=== PATIENT | female | born 1940 ===

== ENCOUNTER 2018-02-19 18:54 | Emergency (ER) | payer MEDICARE, OTHER ==
[2018-02-19] MEDS ORDERED: diphenhydrAMINE 50 MG/ML SDV IVPUSH ONE (19:06)
[2018-02-19] MEDS ORDERED: methylPREDNISolone Sodium Succinate 125 MG/2 ML SDV IVPUSH ONE (19:06)
--- NOTE | 2018-02-19 19:56 | EDM.PDOC ---
ED HPI GENERAL MEDICAL PROBLEM - General Chief Complaint: Allergic Reaction Stated Complaint: ALERGIC REACTION [id number] Time Seen by Provider: 02/19/18 19:00 Source of Information: Reports: Patient History Limitations: Reports: No Limitations - History of Present Illness INITIAL COMMENTS - FREE TEXT/NARRATIVE: Washing radishes and hands started to swell, left greater than right. No previous reaction, States seemed different as soon as put in to water, water turned red. Finger swelling around wedding band. Usually able to remove nightly. now unable to even turn ring. No numbness or tingling in hand or fingers. Onset: Today - Related Data Allergies Allergy/AdvReac Type Severity Reaction Status Date / Time No Known Allergies Allergy Verified 02/19/18 19:01 Home Meds: Home Meds . [No Known Home Meds] 02/19/18 [History] Past Medical History HEENT History: Reports: Impaired Vision [employer] WORK[employer] History: Reports: - Past Surgical History Female Surgical History: Reports: Hysterectomy Social & Family History - Tobacco Use Smoking Status *Q: Never Smoker - Caffeine Use Caffeine Use: Reports: Coffee - Recreational Drug Use Recreational Drug Use: No ED ROS ALLERGIC REACTION - Review of Systems Review Of Systems: ROS reveals no pertinent complaints other than HPI. Constitutional: Reports: No Symptoms HEENT: Reports: No Symptoms Respiratory: Reports: No Symptoms Cardiovascular: Reports: No Symptoms GI/Abdominal: Reports: No Symptoms : Reports: No Symptoms Skin: Reports: Erythema (LEFT hand swollen, mild erythema to dorsal hand. Fingers swollen. RIng tight, non mobile No change in sensation distal ring finger slightly cooler thatn others. ) ED EXAM GENERAL NO PERIP PULSE - Physical Exam Exam: See Below Exam Limited By: No Limitations General Appearance: Alert, Mild Distress Eye Exam: Bilateral Eye: EOMI Throat/Mouth: Normal Lips, Normal Voice Neck: Normal Inspection Respiratory/Chest: No Respiratory Distress, Lungs Clear Cardiovascular: Normal Peripheral Pulses, Regular Rate, Rhythm Extremities: Other (left hand and fingers swollen, wedding band taught on finger. slight coolness at palmar tip). No: Normal Inspection Skin Exam: Intact ED Add Procedures - Additional/Other Procedure(s) Procedure(s) (Free Text): Wide wedding band Tight, removed with ring cutter. Tolerated well No complications. Good cap refill. Full ROM. No Numbness pain or tingling. Ring given to patient. Course - Vital Signs Last Recorded V/S: Last Vital Signs Temp 96.9 F 02/19/18 18:59 Pulse 67 02/19/18 20:21 Resp 16 02/19/18 20:21 BP 102/81 02/19/18 20:21 Pulse Ox 99 02/19/18 20:21 - Orders/Labs/Meds Meds: Medications Discontinued Medications Generic Name Dose Route Start Last Admin Trade Name Jeff PRN Reason Stop Dose Admin Diphenhydramine HCl 25 mg 02/19/18 19:06 02/19/18 19:14 Benadryl IVPUSH 02/19/18 19:07 25 mg ONETIME ONE Administration Methylprednisolone Sodium Succinate 125 mg 02/19/18 19:06 02/19/18 19:16 Solu-Medrol IVPUSH 02/19/18 19:07 125 mg ONETIME ONE Administration - Re-Assessments/Exams Free Text/Narrative Re-Assessment/Exam: 02/19/18 20:09 Cool water bath attempted. No change in swelling. Ring removed with cutter Swelling improving. Full ROM. No tingling or change in sensation. Good color to hand and fingers. 02/20/18 04:43 Departure - Departure Time of Disposition: 20:04 Disposition: Home, Self-Care 01 Condition: Good Clinical Impression: Swelling of left hand Contact dermatitis Qualifiers: Contact dermatitis type: unspecified Contact dermatitis trigger: other trigger Qualified Code(s): L25.8 - Unspecified contact dermatitis due to other agents - Discharge Information Instructions: Allergies, Adult, [id number] Forms: ED Department Discharge Additional Instructions: elevate extremity, move fingers urgent follow up if pain, numbness tingling or discoloration of hand limit salt and sodium intake x 24 hours benadryl 25mg every 4 hours x 24 hours
== END 2018-02-19 20:26 | disposition home or self-care (01) ==
LOC: DL.ED 18:54
DX: L25.8 Unspecified contact dermatitis due to other agents (principal)
CPT/HCPCS: 96374; 96375; 99282; 99283; J1200; J2930

== ENCOUNTER 2020-01-25 20:25 | Emergency (ER) | payer MEDICARE, OTHER ==
--- NOTE | 2020-01-25 20:52 | EDM.PDOC ---
ED HPI GENERAL MEDICAL PROBLEM - General Chief Complaint: Upper Extremity Injury/Pain Stated Complaint: AMBULANCE Time Seen by Provider: 01/25/20 20:47 Source of Information: Reports: Patient, EMS History Limitations: Reports: No Limitations - History of Present Illness INITIAL COMMENTS - FREE TEXT/NARRATIVE: pt states she is fine and wants to go home. 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 ED EXAM, GENERAL - Physical Exam Exam: See Below Exam Limited By: Uncooperative General Appearance: Alert, WD/WN, No Apparent Distress, Other (unco-op stating there is nothing wrong with her.) Eye Exam: Bilateral Eye: PERRL (pupils ess ER @ 4mm) Ears: Hearing Grossly Normal Throat/Mouth: Normal Voice, No Airway Compromise Head: Atraumatic Neck: Non-Tender, Full Range of Motion Respiratory/Chest: No Respiratory Distress Cardiovascular: Regular Rate, Rhythm GI/Abdominal: Soft, Non-Tender Extremities: Other (left elbow spfl abrasions, no suturable wounds, normal ROM no problem, NV wnl) Neurological: Alert, Oriented, Normal Gait, No Motor/Sensory Deficits Psychiatric: Other (cranky) Skin Exam: Warm, Dry, Normal Color Lymphatic: No Adenopathy Course - Vital Signs Last Recorded V/S: Last Vital Signs Temp 35.8 C L 01/25/20 20:30 Pulse 69 01/25/20 20:30 Resp 19 01/25/20 20:30 BP 135/83 01/25/20 20:30 Pulse Ox 100 01/25/20 20:30 Departure - Departure Time of Disposition: 20:52 Disposition: Home, Self-Care 01 Condition: Good Clinical Impression: Elbow abrasion Qualifiers: Encounter type: initial encounter Laterality: left Qualified Code(s): S50.312A - Abrasion of left elbow, initial encounter - Discharge Information Instructions: Abrasion, [id number] Additional Instructions: 1) keep wound clean dry covered until Tuesday 2) see clinic Tuesday for wound check Sepsis Event Note - Evaluation Sepsis Screening Result: No Definite Risk - Focused Exam Vital Signs: Vital Signs Temp Pulse Resp BP Pulse Ox 01/25/20 20:30 35.8 C L 69 19 135/83 100 Date Exam was Performed: 01/25/20 Time Exam was Performed: 20:47
== END 2020-01-25 20:56 | disposition home or self-care (01) ==
LOC: DL.ED 20:25
DX: S50.312A Abrasion of left elbow, initial encounter (principal); W01.10XA Fall on same level from slipping, tripping and stumbling with subsequent striking against unspecified object, initial encounter
CPT/HCPCS: 99282; 99284

== ENCOUNTER 2022-02-19 06:33 | Emergency (ER) | payer MEDICARE, OTHER | END 2022-02-19 08:55 | disposition home or self-care (01) | LOC: DL.ED 06:33 | DX: S72.002A Fracture of unspecified part of neck of left femur, initial encounter for closed fracture (principal); U07.1 COVID-19; Z79.82 Long term (current) use of aspirin; Z79.899 Other long term (current) drug therapy; W18.30XA Fall on same level, unspecified, initial encounter | CPT/HCPCS: 73502; 99284; U0002 ==

== ENCOUNTER 2022-03-15 10:34 | Inpatient (IN) | payer MEDICARE, OTHER ==
[2022-03-15 12:04] LABS: CORONAVIRUS COVID-19 NAA NEGATIVE (NEGATIVE)
[2022-03-15 12:14] LABS: ANION GAP 12.6 mEq/L (7-13)
[2022-03-15] MEDS ORDERED: Potassium Chloride Riders 10 MEQ in Premix Bag 1 BAG IV ONE (12:39)
[2022-03-15] MEDS ORDERED: Iopamidol 755 Mg/ML 100 ML Bottle IVPUSH ONE (12:40)
[2022-03-15] MEDS ORDERED: Polyethylene Glycol 3350 Powder 17 GM Packet PO PRN (15:01)
[2022-03-15] MEDS ORDERED: Bisacodyl 5 MG Tab PO PRN (15:01)
[2022-03-15] MEDS ORDERED: Acetaminophen 325 MG Tab PO PRN (15:01)
[2022-03-15] MEDS ORDERED: Albuterol/Ipratropium 3.0-0.5 MG/3 ML Neb Soln NEB PRN (15:01)
[2022-03-15] MEDS ORDERED: Ondansetron 4 MG/2 ML SDV IVPUSH PRN (15:01)
[2022-03-15] MEDS ORDERED: Docusate Sodium 100 MG Cap PO PRN (15:01)
[2022-03-15] MEDS ORDERED: Acetaminophen/oxyCODONE 325-5 MG Tab PO PRN (15:01)
[2022-03-15] MEDS ORDERED: HYDROmorphone 0.5 MG/0.5 ML Syringe IVPUSH PRN (15:01)
[2022-03-15] MEDS ORDERED: Furosemide 20 MG/2 ML VIAL IVPUSH ONE (15:07)
[2022-03-15] MEDS ORDERED: Potassium Chloride 10 MEQ Tab.ER PO ONE (17:30)
[2022-03-15] MEDS ORDERED: Furosemide 100 MG in Sodium Chloride 0.9% 90 ML IV SCH (20:00)
[2022-03-15] MEDS ORDERED: hydrALAZINE 20 MG/ML SDV IVPUSH PRN (21:12)
[2022-03-15] MEDS: Sodium Chloride 0.9% 10 ML Syringe FLUSH PRN (23:50)
[2022-03-16] MEDS ORDERED: Magnesium Sulfate/Water 2 GM in Premix Bag 1 BAG IV ONE (10:30)
[2022-03-16] MEDS ORDERED: amLODIPine 5 MG Tab PO ONE (10:38)
[2022-03-16] MEDS: Carbamide Peroxide 6.5% Otic Soln 15 ML Bottle EARBOTH SCH ×2 (11:38→21:10)
[2022-03-16] MEDS ORDERED: Potassium Chloride 10 MEQ Tab.ER PO ONE ×2 (12:00→18:00)
[2022-03-16] MEDS ORDERED: Furosemide 100 MG in Sodium Chloride 0.9% 90 ML IV SCH (17:15)
[2022-03-16] MEDS: Sodium Chloride 0.9% 10 ML Syringe FLUSH PRN (21:14)
[2022-03-17 07:29] LABS: ANION GAP 11.9 mEq/L (7-13)
[2022-03-17] MEDS ORDERED: Potassium Chloride 10 MEQ Tab.ER PO SCH (08:00)
[2022-03-17] MEDS: Aspirin 81 MG Tab.EC PO SCH (08:33)
[2022-03-17] MEDS: amLODIPine 5 MG Tab PO SCH (08:33)
[2022-03-17] MEDS: Carbamide Peroxide 6.5% Otic Soln 15 ML Bottle EARBOTH SCH ×2 (08:34→20:20)
[2022-03-17] MEDS ORDERED: Lisinopril 20 MG Tab PO SCH (09:00)
[2022-03-17] MEDS ORDERED: Carvedilol 6.25 MG Tab PO ONE (10:48)
[2022-03-17] MEDS ORDERED: Sodium Chloride 0.9% 250 ML IV SCH ×2 (11:00→20:00)
[2022-03-17] MEDS ORDERED: Allopurinol 300 MG Tab PO ONE (12:00)
[2022-03-17] MEDS: Carvedilol 6.25 MG Tab PO SCH (17:49)
[2022-03-17] MEDS ORDERED: Allopurinol 100 MG Tab PO SCH (18:00)
[2022-03-17 19:17] LABS: ANION GAP 13.2 mEq/L (7-13)
[2022-03-17] MEDS ORDERED: Sodium Chloride 0.9% 500 ML IV SCH ×2 (20:00→20:15)
[2022-03-18 07:11] LABS: ANION GAP 13.8 mEq/L (7-13)
[2022-03-18] MEDS: Aspirin 81 MG Tab.EC PO SCH (10:03)
[2022-03-18] MEDS: Allopurinol 100 MG Tab PO SCH ×2 (10:03→18:29)
[2022-03-18] MEDS: amLODIPine 5 MG Tab PO SCH (10:04)
[2022-03-18] MEDS: Carvedilol 6.25 MG Tab PO SCH ×2 (10:04→18:28)
[2022-03-18] MEDS: Carbamide Peroxide 6.5% Otic Soln 15 ML Bottle EARBOTH SCH (10:09)
[2022-03-19 07:02] LABS: ANION GAP 10.8 mEq/L (7-13)
[2022-03-19] MEDS: Aspirin 81 MG Tab.EC PO SCH (08:23)
[2022-03-19] MEDS: Carvedilol 6.25 MG Tab PO SCH (08:24)
[2022-03-19] MEDS: amLODIPine 5 MG Tab PO SCH (08:24)
[2022-03-19] MEDS: Allopurinol 100 MG Tab PO SCH (08:25)
== END 2022-03-19 14:00 | disposition home or self-care (01) | DRG 292 ==
LOC: DL.ED 10:34 → DL.MS 15:07
PROVIDERS: ADMIT Internal Medicine; ATTEND Internal Medicine
DX: I11.0 Hypertensive heart disease with heart failure (principal); I31.3 Pericardial effusion (noninflammatory); N17.9 Acute kidney failure, unspecified; J98.11 Atelectasis; I47.1 Supraventricular tachycardia; Z20.822 Contact with and (suspected) exposure to COVID-19; I50.9 Heart failure, unspecified; M81.0 Age-related osteoporosis without current pathological fracture; M47.899 Other spondylosis, site unspecified; D64.9 Anemia, unspecified; E79.0 Hyperuricemia without signs of inflammatory arthritis and tophaceous disease; E87.6 Hypokalemia; I16.0 Hypertensive urgency; Z86.16 Personal history of COVID-19; Z79.82 Long term (current) use of aspirin; Z98.890 Other specified postprocedural states; Z79.899 Other long term (current) drug therapy; Z79.52 Long term (current) use of systemic steroids; Z90.710 Acquired absence of both cervix and uterus
CPT/HCPCS: 0240U; 36415; 51702; 71045; 71260; 80048; 80053; 83605; 83735; 83880; 84439; 84443; 84484; 84550; 85025; 85379; 85610; 87040; 93005; 93306; 94010; 96365; 97161; 97165; 99285; 93010; 99284; A9270-GY; J0360; J1940; J3475; J3480; J3490; J7040; J7050; Q9967

== ENCOUNTER 2022-08-19 12:50 | Inpatient (IN) | payer MEDICARE, OTHER ==
[2022-08-19] MEDS ORDERED: Sodium Chloride 0.9% 10 ML Syringe FLUSH PRN (13:09)
[2022-08-19 14:19] LABS: ANION GAP 2.1 mEq/L (7-13); CHLORIDE,CL 98 mmol/L (98-107); SODIUM,NA 126 mmol/L (136-145)
[2022-08-19 14:34] LABS: AMPHETAMINES,URINE NEGATIVE (NEGATIVE); BARBITURATES,URINE NEGATIVE (NEGATIVE); BENZODIAZEPINE,URINE NEGATIVE (NEGATIVE); MDMA (ECSTASY), URINE NEGATIVE (NEGATIVE); METHADONE,URINE NEGATIVE (NEGATIVE); METHAMPHETAMINES,URINE NEGATIVE (NEGATIVE); OPIATES,URINE NEGATIVE (NEGATIVE); OXYCODONE,URINE NEGATIVE (NEGATIVE); PHENCYCLIDINE,URINE NEGATIVE (NEGATIVE); TCA,URINE NEGATIVE (NEGATIVE)
[2022-08-19 14:35] LABS: ESTIMATED GFR 52 mL/min (>=60)
[2022-08-19 14:35] LABS: CORONAVIRUS COVID-19 NAA NEGATIVE (NEGATIVE); RESPIRATORY SYNCYTIAL VIR NAA POSITIVE (NEGATIVE)
[2022-08-19] MEDS ORDERED: Potassium Chloride 10 MEQ Tab.ER PO ONE ×2 (15:32→17:25)
[2022-08-19] MEDS ORDERED: cefTRIAXone 2 GM Vial IVPUSH ONE (15:52)
[2022-08-19] MEDS ORDERED: Azithromycin 500 MG in Sodium Chloride 0.9% 250 ML IV ONE (15:53)
[2022-08-19] MEDS ORDERED: Magnesium Hydroxide 400 MG/5 ML Susp 30 ML Cup PO PRN (17:13)
[2022-08-19] MEDS ORDERED: Ondansetron 4 MG/2 ML SDV IVPUSH PRN (17:13)
[2022-08-19] MEDS ORDERED: Polyethylene Glycol 3350 Powder 17 GM Packet PO PRN (17:13)
[2022-08-19] MEDS ORDERED: Bisacodyl 5 MG Tab PO PRN (17:13)
[2022-08-19] MEDS ORDERED: Albuterol 0.083% 2.5 MG/3 ML Neb Soln NEB PRN (17:13)
[2022-08-19] MEDS ORDERED: Lactated Ringers 1,000 ML IV SCH (17:15)
[2022-08-19] MEDS: Ipratropium 0.02% 0.5 MG/2.5 ML Neb Soln NEB SCH (18:27)
[2022-08-19] MEDS: Enoxaparin 40 MG/0.4 ML Syringe SUBCUT SCH (18:27)
[2022-08-19] MEDS: Acetaminophen 325 MG Tab PO PRN (20:50)
[2022-08-19] MEDS ORDERED: Mirtazapine 15 MG Tab PO SCH (21:00)
[2022-08-19] MEDS ORDERED: Water For Injection, Sterile 10 ML ONE (22:13)
[2022-08-19] MEDS: OLANZapine 10 MG Vial IM PRN (22:21)
[2022-08-20] MEDS: Ipratropium 0.02% 0.5 MG/2.5 ML Neb Soln NEB SCH ×4 (02:09→17:00)
[2022-08-20] MEDS ORDERED: Water For Injection, Sterile 10 ML ONE (06:49)
[2022-08-20] MEDS: OLANZapine 10 MG Vial IM PRN (06:55)
[2022-08-20 07:06] LABS: ANION GAP 13.5 mEq/L (7-13)
[2022-08-20] MEDS ORDERED: Dextrose 5% in Water 500 ML IV SCH (08:30)
[2022-08-20] MEDS ORDERED: Azithromycin 200 MG/5 ML Susp 30 ML Bottle PO SCH (09:00)
[2022-08-20] MEDS: cefTRIAXone 1 GM Vial IVPUSH SCH (10:35)
[2022-08-20] MEDS: Enoxaparin 40 MG/0.4 ML Syringe SUBCUT SCH (10:36)
[2022-08-20] MEDS: Azithromycin 250 MG Tab PO SCH (10:41)
[2022-08-20] MEDS ORDERED: Magnesium Sulfate/Water 4 GM in Premix Bag 1 BAG IV ONE (11:35)
[2022-08-20] MEDS: Lactated Ringers 1,000 ML IV SCH ×2 (11:41→21:22)
[2022-08-20] MEDS ORDERED: QUEtiapine 25 MG Tab PO ONE (16:20)
[2022-08-20] MEDS: Acetaminophen 325 MG Tab PO PRN (20:04)
[2022-08-20] MEDS: QUEtiapine 25 MG Tab PO SCH (20:04)
[2022-08-21] MEDS: Ipratropium 0.02% 0.5 MG/2.5 ML Neb Soln NEB SCH ×4 (00:26→17:14)
[2022-08-21] MEDS: Azithromycin 250 MG Tab PO SCH (08:43)
[2022-08-21] MEDS: Enoxaparin 40 MG/0.4 ML Syringe SUBCUT SCH (08:43)
[2022-08-21] MEDS: cefTRIAXone 1 GM Vial IVPUSH SCH (08:44)
[2022-08-21] MEDS: Sodium Chloride 0.9% 10 ML Syringe FLUSH PRN ×2 (08:44→23:55)
[2022-08-21] MEDS: Lactated Ringers 1,000 ML IV SCH (08:56)
[2022-08-21 10:39] LABS: ANION GAP 13.7 mEq/L (7-13)
[2022-08-21] MEDS ORDERED: QUEtiapine 25 MG Tab PO ONE (14:43)
[2022-08-21] MEDS ORDERED: OLANZapine 10 MG Vial IM ONE (18:15)
[2022-08-21] MEDS ORDERED: Water For Injection, Sterile 10 ML ONE (18:19)
[2022-08-21] MEDS ORDERED: LORazepam 1 MG Tab PO PRN (19:08)
[2022-08-21] MEDS: LORazepam 2 MG/ML SDV IVPUSH PRN ×2 (19:30→23:56)
[2022-08-21] MEDS: QUEtiapine 25 MG Tab PO SCH (22:35)
[2022-08-22] MEDS: Ipratropium 0.02% 0.5 MG/2.5 ML Neb Soln NEB SCH ×4 (00:25→17:02)
[2022-08-22 07:36] LABS: ANION GAP 11.5 mEq/L (7-13)
[2022-08-22] MEDS ORDERED: Lactated Ringers 1,000 ML IV SCH (09:00)
[2022-08-22] MEDS: Enoxaparin 40 MG/0.4 ML Syringe SUBCUT SCH (10:09)
[2022-08-22] MEDS: cefTRIAXone 1 GM Vial IVPUSH SCH (10:09)
[2022-08-22] MEDS: QUEtiapine 25 MG Tab PO SCH ×3 (10:23→20:12)
[2022-08-22] MEDS: Labetalol 20 MG/4 ML Syringe IVPUSH PRN ×3 (12:15→22:19)
[2022-08-22] MEDS: LORazepam 2 MG/ML SDV IVPUSH PRN ×2 (17:08→20:21)
[2022-08-22] MEDS: Acetaminophen 325 MG Tab PO PRN ×2 (17:34→19:58)
[2022-08-22] MEDS: Lactated Ringers 1,000 ML IV SCH (20:25)
[2022-08-23] MEDS: Albuterol/Ipratropium 3.0-0.5 MG/3 ML Neb Soln NEB SCH ×4 (00:54→19:01)
[2022-08-23] MEDS: Labetalol 20 MG/4 ML Syringe IVPUSH PRN ×3 (00:54→16:04)
[2022-08-23] MEDS ORDERED: Labetalol 20 MG/4 ML Syringe IVPUSH ONE (01:52)
[2022-08-23 06:57] LABS: ANION GAP 9.8 mEq/L (7-13)
[2022-08-23] MEDS: cefTRIAXone 1 GM Vial IVPUSH SCH (10:06)
[2022-08-23] MEDS: Sodium Chloride 0.9% 10 ML Syringe FLUSH PRN (10:06)
[2022-08-23] MEDS: Lactated Ringers 1,000 ML IV SCH ×2 (10:12→21:04)
[2022-08-23] MEDS: amLODIPine 5 MG Tab PO SCH (10:13)
[2022-08-23] MEDS: Lisinopril 20 MG Tab PO SCH (10:13)
[2022-08-23] MEDS: QUEtiapine 25 MG Tab PO SCH ×3 (10:14→21:03)
[2022-08-23] MEDS: Enoxaparin 40 MG/0.4 ML Syringe SUBCUT SCH (10:15)
[2022-08-23] MEDS ORDERED: OLANZapine 10 MG Vial IM PRN (10:49)
[2022-08-23] MEDS ORDERED: hydrALAZINE 20 MG/ML SDV IVPUSH PRN (11:00)
[2022-08-23] MEDS ORDERED: Thiamine 100 MG in Sodium Chloride 0.9% 100 ML IV ONE (11:09)
[2022-08-23] MEDS: Acetaminophen 325 MG Tab PO PRN (16:04)
[2022-08-23] MEDS: Carvedilol 6.25 MG Tab PO SCH (21:02)
[2022-08-23] MEDS: Multivitamin Tab PO SCH (21:03)
[2022-08-24] MEDS: Albuterol/Ipratropium 3.0-0.5 MG/3 ML Neb Soln NEB SCH ×5 (01:57→19:09)
[2022-08-24 08:09] LABS: ANION GAP 13.2 mEq/L (7-13)
[2022-08-24] MEDS: Lactated Ringers 1,000 ML IV SCH ×2 (08:50→22:00)
[2022-08-24] MEDS: Carvedilol 6.25 MG Tab PO SCH ×3 (08:50→17:05)
[2022-08-24] MEDS: Lisinopril 20 MG Tab PO SCH ×2 (08:51→12:18)
[2022-08-24] MEDS: QUEtiapine 25 MG Tab PO SCH ×3 (08:51→20:15)
[2022-08-24] MEDS: amLODIPine 5 MG Tab PO SCH ×2 (08:51→12:18)
[2022-08-24] MEDS: Acetaminophen 325 MG Tab PO PRN (08:52)
[2022-08-24] MEDS: Enoxaparin 40 MG/0.4 ML Syringe SUBCUT SCH (08:52)
[2022-08-24] MEDS: Potassium Chloride Riders 10 MEQ in Premix Bag 1 BAG IV SCH ×4 (11:27→15:14)
[2022-08-24] MEDS: methylPREDNISolone Sodium Succinate 40 MG/1 ML SDV IVPUSH SCH ×2 (11:28→17:01)
[2022-08-24] MEDS: OLANZapine 5 MG Tab PO SCH ×2 (11:35→20:15)
[2022-08-24] MEDS: Piperacillin/Tazobactam 3.375 GM in Sodium Chloride 0.9% 100 ML IV SCH ×2 (13:32→17:00)
[2022-08-24] MEDS: Multivitamin Tab PO SCH (20:18)
[2022-08-25] MEDS: methylPREDNISolone Sodium Succinate 40 MG/1 ML SDV IVPUSH SCH ×5 (00:16→23:03)
[2022-08-25] MEDS: Piperacillin/Tazobactam 3.375 GM in Sodium Chloride 0.9% 100 ML IV SCH ×5 (00:16→23:05)
[2022-08-25] MEDS: Albuterol/Ipratropium 3.0-0.5 MG/3 ML Neb Soln NEB SCH ×4 (00:16→18:40)
[2022-08-25 06:49] LABS: ANION GAP 13.3 mEq/L (7-13)
[2022-08-25] MEDS: amLODIPine 5 MG Tab PO SCH (08:59)
[2022-08-25] MEDS: OLANZapine 5 MG Tab PO SCH ×2 (09:00→20:26)
[2022-08-25] MEDS: Carvedilol 6.25 MG Tab PO SCH ×2 (09:00→18:17)
[2022-08-25] MEDS: Lisinopril 20 MG Tab PO SCH (09:01)
[2022-08-25] MEDS: Potassium Chloride Riders 10 MEQ in Premix Bag 1 BAG IV SCH ×4 (09:01→14:30)
[2022-08-25] MEDS: Enoxaparin 40 MG/0.4 ML Syringe SUBCUT SCH (09:09)
[2022-08-25] MEDS: QUEtiapine 25 MG Tab PO SCH ×2 (09:22→20:26)
[2022-08-25] MEDS: Lactated Ringers 1,000 ML IV SCH ×2 (15:57→20:28)
[2022-08-25] MEDS: Scopolamine 1.5 MG Transdermal Patch TRDERM SCH (17:38)
[2022-08-25] MEDS: Multivitamin Tab PO SCH ×2 (20:26→20:39)
[2022-08-25] MEDS: Sodium Chloride 0.9% 10 ML Syringe FLUSH PRN ×2 (20:28→23:03)
[2022-08-25] MEDS: CHECK SCOPOLAMINE TRDERM SCH (23:02)
[2022-08-26] MEDS: Albuterol/Ipratropium 3.0-0.5 MG/3 ML Neb Soln NEB SCH ×4 (00:23→17:53)
[2022-08-26] MEDS: methylPREDNISolone Sodium Succinate 40 MG/1 ML SDV IVPUSH SCH (05:22)
[2022-08-26] MEDS: Sodium Chloride 0.9% 10 ML Syringe FLUSH PRN (05:22)
[2022-08-26] MEDS: Piperacillin/Tazobactam 3.375 GM in Sodium Chloride 0.9% 100 ML IV SCH ×4 (05:26→22:00)
[2022-08-26 07:17] LABS: ANION GAP 13.2 mEq/L (7-13)
[2022-08-26] MEDS: Potassium Chloride Riders 10 MEQ in Premix Bag 1 BAG IV SCH ×4 (09:59→14:16)
[2022-08-26] MEDS: Lactated Ringers 1,000 ML IV SCH ×2 (09:59→20:00)
[2022-08-26] MEDS: Carvedilol 6.25 MG Tab PO SCH ×2 (11:13→18:23)
[2022-08-26] MEDS: Enoxaparin 40 MG/0.4 ML Syringe SUBCUT SCH (11:13)
[2022-08-26] MEDS: QUEtiapine 25 MG Tab PO SCH ×2 (11:14→21:14)
[2022-08-26] MEDS: amLODIPine 5 MG Tab PO SCH (11:14)
[2022-08-26] MEDS: OLANZapine 5 MG Tab PO SCH ×2 (11:14→21:14)
[2022-08-26] MEDS: Lisinopril 20 MG Tab PO SCH (11:14)
[2022-08-26] MEDS ORDERED: Potassium Chloride Riders 10 MEQ in Premix Bag 1 BAG IV SCH (14:15)
[2022-08-26] MEDS: HYDROmorphone 0.5 MG/0.5 ML Syringe IVPUSH PRN ×2 (14:16→22:00)
[2022-08-26] MEDS: Labetalol 20 MG/4 ML Syringe IVPUSH PRN (18:24)
[2022-08-26] MEDS: CHECK SCOPOLAMINE TRDERM SCH (21:14)
[2022-08-26] MEDS: Multivitamin Tab PO SCH (21:14)
[2022-08-27] MEDS: Albuterol/Ipratropium 3.0-0.5 MG/3 ML Neb Soln NEB SCH ×3 (00:15→13:14)
[2022-08-27] MEDS: Piperacillin/Tazobactam 3.375 GM in Sodium Chloride 0.9% 100 ML IV SCH ×4 (06:08→23:02)
[2022-08-27] MEDS: Lactated Ringers 1,000 ML IV SCH ×2 (09:27→21:04)
[2022-08-27] MEDS: Enoxaparin 40 MG/0.4 ML Syringe SUBCUT SCH (09:52)
[2022-08-27] MEDS: Carvedilol 6.25 MG Tab PO SCH ×2 (09:52→17:21)
[2022-08-27] MEDS: amLODIPine 5 MG Tab PO SCH (09:53)
[2022-08-27] MEDS: OLANZapine 5 MG Tab PO SCH ×2 (09:53→21:33)
[2022-08-27] MEDS: Lisinopril 20 MG Tab PO SCH (09:53)
[2022-08-27] MEDS: QUEtiapine 25 MG Tab PO SCH ×2 (09:53→21:32)
[2022-08-27] MEDS: HYDROmorphone 0.5 MG/0.5 ML Syringe IVPUSH PRN ×4 (12:28→23:09)
[2022-08-27] MEDS: Loperamide 2 MG Cap PO PRN (12:47)
[2022-08-27] MEDS: Sodium Chloride 0.9% 10 ML Syringe FLUSH PRN ×2 (17:25→21:05)
[2022-08-27] MEDS: CHECK SCOPOLAMINE TRDERM SCH (21:35)
[2022-08-27] MEDS: Multivitamin Tab PO SCH (21:35)
[2022-08-28] MEDS: Piperacillin/Tazobactam 3.375 GM in Sodium Chloride 0.9% 100 ML IV SCH ×3 (05:31→17:08)
[2022-08-28] MEDS: Sodium Chloride 0.9% 10 ML Syringe FLUSH PRN ×2 (05:32→13:51)
[2022-08-28] MEDS: Lactated Ringers 1,000 ML IV SCH (09:08)
[2022-08-28] MEDS: QUEtiapine 25 MG Tab PO SCH ×2 (10:50→20:25)
[2022-08-28] MEDS: OLANZapine 5 MG Tab PO SCH ×2 (10:50→20:25)
[2022-08-28] MEDS: Acetaminophen 325 MG Tab PO PRN ×2 (17:06→21:59)
[2022-08-28] MEDS: oxyCODONE 5 MG Tab PO PRN ×2 (17:07→21:58)
[2022-08-28] MEDS: Scopolamine 1.5 MG Transdermal Patch TRDERM SCH (17:49)
[2022-08-28] MEDS: Loperamide 2 MG Cap PO PRN (20:25)
[2022-08-28] MEDS: Multivitamin Tab PO SCH (20:26)
[2022-08-28] MEDS: CHECK SCOPOLAMINE TRDERM SCH (21:28)
[2022-08-29] MEDS: QUEtiapine 25 MG Tab PO SCH ×2 (12:26→20:46)
[2022-08-29] MEDS: OLANZapine 5 MG Tab PO SCH ×2 (12:27→20:46)
[2022-08-29] MEDS: oxyCODONE 5 MG Tab PO PRN ×2 (12:28→22:26)
[2022-08-29] MEDS: Acetaminophen 325 MG Tab PO PRN ×2 (12:28→22:27)
[2022-08-29] MEDS: Multivitamin Tab PO SCH (20:47)
[2022-08-29] MEDS: CHECK SCOPOLAMINE TRDERM SCH (20:49)
[2022-08-29] MEDS: Sodium Chloride 0.9% 10 ML Syringe FLUSH PRN (20:49)
[2022-08-30] MEDS: OLANZapine 5 MG Tab PO SCH ×2 (08:40→20:00)
[2022-08-30] MEDS: QUEtiapine 25 MG Tab PO SCH ×2 (08:40→20:00)
[2022-08-30] MEDS: oxyCODONE 5 MG Tab PO PRN (08:41)
[2022-08-30] MEDS: Acetaminophen 325 MG Tab PO PRN (08:41)
[2022-08-30] MEDS: Melatonin 3 MG Tab PO SCH (20:00)
[2022-08-30] MEDS: Multivitamin Tab PO SCH (20:02)
[2022-08-30] MEDS: CHECK SCOPOLAMINE TRDERM SCH (20:03)
[2022-08-30] MEDS: guaiFENesin/Dextromethorphan 100-10 MG/5 ML Soln 5 ML Cup PO PRN (20:06)
[2022-08-30] MEDS: Sodium Chloride 0.9% 10 ML Syringe FLUSH PRN (20:11)
[2022-08-31] MEDS: QUEtiapine 25 MG Tab PO SCH ×2 (09:56→20:19)
[2022-08-31] MEDS: OLANZapine 5 MG Tab PO SCH ×2 (09:56→20:19)
[2022-08-31] MEDS: Acetaminophen 325 MG Tab PO PRN (09:57)
[2022-08-31 16:37] VITALS: BP 189/63; PULSE 89
[2022-08-31] MEDS: Scopolamine 1.5 MG Transdermal Patch TRDERM SCH (18:24)
[2022-08-31] MEDS: CHECK SCOPOLAMINE TRDERM SCH (20:19)
[2022-08-31] MEDS: Melatonin 3 MG Tab PO SCH (20:19)
[2022-08-31] MEDS: Multivitamin Tab PO SCH (20:19)
[2022-08-31] MEDS: guaiFENesin/Dextromethorphan 100-10 MG/5 ML Soln 5 ML Cup PO PRN (20:24)
[2022-09-01] MEDS: Acetaminophen 325 MG Tab PO PRN (01:32)
[2022-09-01] MEDS: oxyCODONE 5 MG Tab PO PRN (01:33)
[2022-09-01] MEDS: OLANZapine 5 MG Tab PO SCH (08:50)
[2022-09-01] MEDS: QUEtiapine 25 MG Tab PO SCH (08:51)
== END 2022-09-01 09:20 | DRG 871 ==
LOC: DL.ED 12:50 → DL.MS 16:53 → UNDOADMOB 17:03 → DL.MS 17:03 → OBSVTOIN 08-20 10:58
PROVIDERS: ADMIT Internal Medicine; ATTEND Hospitalist
DX: A41.9 Sepsis, unspecified organism (principal); J12.1 Respiratory syncytial virus pneumonia; J15.9 Unspecified bacterial pneumonia; J96.01 Acute respiratory failure with hypoxia; J21.0 Acute bronchiolitis due to respiratory syncytial virus; E87.1 Hypo-osmolality and hyponatremia; E51.2 Wernicke's encephalopathy; N17.9 Acute kidney failure, unspecified; Z51.5 Encounter for palliative care; Z66 Do not resuscitate; I10 Essential (primary) hypertension; E86.0 Dehydration; F03.A0 Unspecified dementia, mild, without behavioral disturbance, psychotic disturbance, mood disturbance, and anxiety; H54.7 Unspecified visual loss; Z20.822 Contact with and (suspected) exposure to COVID-19; H91.90 Unspecified hearing loss, unspecified ear; Z86.19 Personal history of other infectious and parasitic diseases; Z86.16 Personal history of COVID-19; Z79.82 Long term (current) use of aspirin; Z79.899 Other long term (current) drug therapy; Z90.710 Acquired absence of both cervix and uterus
CPT/HCPCS: 0241U; 36415; 70450; 71045; 71250; 80048; 80053; 80305-QW; 80307; 81001; 82140; 82150; 82607; 83540; 83550; 83605; 83690; 83735; 83880; 84145; 84443; 85025; 86140; 87040; 87086; 93005; 93010; 94640; 96361; 96372; 96374; 96376; 99223; 99233; 99239; 99285; 99285-25; A9270-GY; G0378; J0696; J1170; J1650; J2060; J2543; J2920; J3411; J3475; J3480; J3490; J7050; J7060; J7120; J7620-GY; U0002

== ENCOUNTER 2022-10-22 11:24 | Emergency (ER) | payer MEDICARE, OTHER ==
[2022-10-22] MEDS ORDERED: Sodium Chloride 0.9% 10 ML Syringe FLUSH PRN (11:27)
[2022-10-22 12:10] LABS: PTT,PARTIAL THROMBOPLSTIN TIME 23.6 SEC (22.0-34.0)
[2022-10-22 12:53] LABS: AMPHETAMINES,URINE NEGATIVE (NEGATIVE); BARBITURATES,URINE NEGATIVE (NEGATIVE); BENZODIAZEPINE,URINE NEGATIVE (NEGATIVE); MDMA (ECSTASY), URINE NEGATIVE (NEGATIVE); METHADONE,URINE NEGATIVE (NEGATIVE); METHAMPHETAMINES,URINE NEGATIVE (NEGATIVE); OPIATES,URINE NEGATIVE (NEGATIVE); OXYCODONE,URINE NEGATIVE (NEGATIVE); PHENCYCLIDINE,URINE NEGATIVE (NEGATIVE); TCA,URINE NEGATIVE (NEGATIVE)
[2022-10-22] MEDS ORDERED: cefTRIAXone 2 GM Vial IVPUSH ONE (13:10)
[2022-10-22 13:33] LABS: CORONAVIRUS COVID-19 NAA NEGATIVE (NEGATIVE); RESPIRATORY SYNCYTIAL VIR NAA NEGATIVE (NEGATIVE)
== END 2022-10-22 14:03 ==
LOC: DL.ED 11:24
DX: N39.0 Urinary tract infection, site not specified (principal); R41.0 Disorientation, unspecified; I10 Essential (primary) hypertension; Z79.899 Other long term (current) drug therapy; Z20.822 Contact with and (suspected) exposure to COVID-19
CPT/HCPCS: 0241U; 36415; 70450; 71045; 80053; 80305-QW; 81001; 83605; 83880; 84484; 85025; 85610; 85730; 87040; 87086; 87088; 87186; 93005; 93010; 96374; 99285; 99285-25; J0696; J3490

== ENCOUNTER 2023-02-04 11:23 | Emergency (ER) | payer MEDICARE, BC, OTHER ==
[2023-02-04 11:23] LABS: BASOPHILS PERCENT AUTO 0.1 % (0.0-1.0); EOSINOPHILS PERCENT AUTO 0.8 % (1.0-3.0); HEMATOCRIT 40.2 % (37.0-47.0); MEAN CORPUSCULAR HEMOGLOBIN 29.5 pg (27.0-34.0); MEAN CORPUSCULAR HGB CONC 32.3 g/dL (33.0-35.0); MEAN CORPUSCULAR VOLUME 91.2 fL (80-100); MONOCYTES PERCENT AUTO 6.2 % (2-8); NEUTROPHILS PERCENT AUTO 83.9 % (42.2-75.2); PLATELET COUNT,PLT 466 10^3/uL (150-450); RED BLOOD CELL COUNT 4.41 10^6/uL (4.2-5.4); WHITE BLOOD CELL COUNT,WBC 10.6 10^3/uL (5.0-10.0)
[~2023-02-04 11:23] MED LIST: Sodium Chloride 0.9% 10 ML Syringe FLUSH PRN
[2023-02-04 11:41] LABS: ALBUMIN 3.2 g/dL (3.4-5.0); ANION GAP 12.8 mEq/L (7-13); BILIRUBIN TOTAL 0.5 mg/dL (0.2-1.0); BUN/CREATININE RATIO 36.3 (No establ ref range); C-REACTIVE PROTEIN 4.7 mg/dL (0.0-0.9); CREATININE 1.13 mg/dL (0.55-1.02); EST CRCL DRUG DOSING (CG) 29.96 mL/min; MAGNESIUM 2.6 mg/dL (1.8-2.4); POTASSIUM,K 4.8 mmol/L (3.5-5.1); PROTEIN TOTAL,TP 7.2 g/dL (6.4-8.2)
[2023-02-04 11:43] LABS: A/G RATIO 0.8
[2023-02-04 11:44] LABS: LACTIC ACID 1.6 mmol/L (0.4-2.0)
[2023-02-04] MEDS ORDERED: cefTRIAXone 2 GM Vial IVPUSH ONE (11:59)
== END 2023-02-04 12:38 | disposition home or self-care (01) ==
LOC: DL.ED 11:23
DX: J18.9 Pneumonia, unspecified organism (principal); I10 Essential (primary) hypertension; Z86.16 Personal history of COVID-19; Z79.899 Other long term (current) drug therapy
CPT/HCPCS: 36415; 71045; 80053; 83605; 83735; 83880; 85025; 86140; 87040; 96374; 99285; J0696; J3490

== ENCOUNTER 2023-08-13 10:44 | Emergency (ER) | payer MEDICARE, BC, OTHER | END 2023-08-13 12:47 | disposition home or self-care (01) | LOC: DL.ED 10:44 | DX: R10.2 Pelvic and perineal pain (principal); I10 Essential (primary) hypertension; E83.42 Hypomagnesemia; Z79.899 Other long term (current) drug therapy; Z86.16 Personal history of COVID-19; Z90.710 Acquired absence of both cervix and uterus; W22.8XXA Striking against or struck by other objects, initial encounter | CPT/HCPCS: 70450; 72125; 72190; 84425; 99285 ==

== ENCOUNTER 2025-05-09 12:31 | Emergency (ER) | payer MEDICARE, BC, OTHER ==
[2025-05-09] MEDS ORDERED: Sodium Chloride 0.9% 10 ML Syringe FLUSH PRN (13:05)
[2025-05-09 13:33] LABS: BASOPHILS PERCENT AUTO 0.2 % (0.0-1.0); EOSINOPHILS PERCENT AUTO 0.9 % (1.0-3.0); LYMPHOCYTES PERCENT AUTO 4.2 % (20.5-50.1); MONOCYTES PERCENT AUTO 11.1 % (2-8); NEUTROPHILS PERCENT AUTO 83.6 % (42.2-75.2); PLATELET COUNT,PLT 400 10^3/uL (150-450); RED BLOOD CELL COUNT 3.85 10^6/uL (4.2-5.4); WHITE BLOOD CELL COUNT,WBC 12.6 10^3/uL (5.0-10.0)
[2025-05-09 13:47] LABS: BLOOD UREA NITROGEN,BUN 24.0 mg/dL (7-18); CARBON DIOXIDE,CO2 28.0 mmol/L (21-32); CHLORIDE,CL 100.0 mmol/L (98-107); CREATININE 0.99 mg/dL (0.55-1.02); EST CRCL DRUG DOSING (CG) 38.89 mL/min; GLUCOSE RANDOM 99.0 mg/dL (70-99); POTASSIUM,K 3.9 mmol/L (3.5-5.1); SODIUM,NA 136.0 mmol/L (136-145)
[2025-05-09 13:51] LABS: ESTIMATED GFR 56.0 mL/min (>=60)
[2025-05-09 13:55] LABS: LACTIC ACID 0.9 mmol/L (0.4-2.0)
[2025-05-09 13:58] LABS: B-TYPE NATRIURETIC PEPTIDE,BNP 97.0 pg/ml (0-100)
[2025-05-09] MEDS: Iopamidol 755 Mg/ML 100 ML Bottle IVPUSH ONE (15:05)
== END 2025-05-09 18:01 ==
LOC: DL.ED 12:31
DX: J18.9 Pneumonia, unspecified organism (principal); J90 Pleural effusion, not elsewhere classified; I10 Essential (primary) hypertension; Z86.16 Personal history of COVID-19; Z90.710 Acquired absence of both cervix and uterus; Z79.51 Long term (current) use of inhaled steroids; Z79.899 Other long term (current) drug therapy
CPT/HCPCS: 36415; 71045; 71275; 80048; 83605; 83880; 85025; 87040; 94640; 96365; 96375; 99284; 99285; A9270; J0456; J0696; J7050; Q9967